=== PATIENT | female | born 1960 | race Caucasian/White ===

== ENCOUNTER → 2017-02-18 | Outpatient (CLI) | payer OTHER ==
[~2017-02-18] MED LIST: MELA1TAB8 PO
== END | disposition home or self-care (01) ==
LOC: STAR 08:15
PROVIDERS: ATTEND Surgery
DX: Z02.9 Encounter for administrative examinations, unspecified (principal)

== ENCOUNTER 2017-02-23 07:10 | Day surgery (SDC) | payer OTHER ==
[~2017-02-23] VITALS: Ht 170.2 cm; Wt 71.4 kg
[2017-02-23] MEDS ORDERED: FENTANYL PF 250 MCG/5ML ONE (09:12)
[2017-02-23] MEDS ORDERED: BUPIVACAINE/PF-EPI 0.5% 1:200K ONE (09:27)
[2017-02-23] MEDS ORDERED: OXYcodone 5 MG/5 ML ORAL.SOL UDC ONE (11:15)
[2017-02-23] MEDS ORDERED: ACETAMINOPHEN 650 MG/20.3 ML UDC ONE (11:15)
[2017-02-23] MEDS: FENTANYL PF 100 MCG/2ML IV PRN ×2 (11:30→11:45)
[2017-02-23] MEDS ORDERED: FENTANYL PF 100 MCG/2ML ONE (11:30)
[2017-02-23] MEDS ORDERED: ONDANSETRON 2MG/ML, 2ML ONE (12:16)
[2017-02-23] MEDS ORDERED: PROMETHAZINE 25 MG SUPP PR ONE ×2 (16:34→17:01)
[2017-02-25 08:11] LABS: IOPTH BASELINE 265 pg/mL; SAMPLE 5 %DROP IOPTH 68 %; SAMPLE 6 %DROP IOPTH 75 %; SAMPLE 7 %DROP IOPTH 74 %
[2017-02-25] MEDS ORDERED: ACETAMINOPHEN 325 MG TABLET PO PRN (10:00)
[2017-02-25] MEDS ORDERED: OXYcodone 5 MG/5 ML ORAL.SOL UDC PO PRN (10:00)
[2017-02-25] MEDS ORDERED: LACTATED RINGERS 1,000 ML IV SCH (14:15)
== END 2017-02-23 17:55 | disposition home or self-care (01) ==
LOC: OR 07:10
PROVIDERS: ATTEND Surgery
DX: E21.0 Primary hyperparathyroidism (principal); Z87.891 Personal history of nicotine dependence; Z72.89 Other problems related to lifestyle; M85.80 Other specified disorders of bone density and structure, unspecified site; E55.9 Vitamin D deficiency, unspecified; Z82.3 Family history of stroke; Z82.49 Family history of ischemic heart disease and other diseases of the circulatory system
CPT/HCPCS: 36415; 60500; 83970; 88305; 88331; 95865; 95940; C1760; J3010

== ENCOUNTER 2017-03-07 16:06 | Emergency (ER) | payer OTHER ==
[~2017-03-07] VITALS: Ht 170.2 cm; Wt 71.2 kg
[2017-03-07] MEDS ORDERED: OXYcodone/APAP 5/325MG TABLET ONE (16:47)
[2017-03-07] MEDS ORDERED: DIAZEPAM 5 MG TABLET ONE (16:47)
[2017-03-07] MEDS ORDERED: KETOROLAC 30 MG/1 ML ONE (16:47)
[2017-03-07] MEDS ORDERED: DIAZEPAM 5 MG TABLET PO ONE (17:00)
[2017-03-07] MEDS ORDERED: OXYcodone/APAP 5/325MG TABLET PO ONE (17:00)
[2017-03-07] MEDS ORDERED: KETOROLAC 30 MG/1 ML IM ONE (17:00)
[2017-03-07 17:13] VITALS: BP 106/73
== END 2017-03-07 17:15 | disposition home or self-care (01) ==
LOC: ED 17:11
DX: S73.102A Unspecified sprain of left hip, initial encounter (principal); M62.838 Other muscle spasm; X50.9XXA Other and unspecified overexertion or strenuous movements or postures, initial encounter; Y93.89 Activity, other specified; Y92.89 Other specified places as the place of occurrence of the external cause; Y99.8 Other external cause status
CPT/HCPCS: 96372; 99283; J1885

== ENCOUNTER 2018-06-07 06:44 | Day surgery (SDC) | payer OTHER ==
[~2018-06-07] VITALS: Ht 170.2 cm; Wt 68.5 kg
[~2018-06-07 06:44] MED LIST changes: +ESTR0.5T PO; +PROG100C16 PO
[2018-06-07 07:17] VITALS: BP 114/78
[2018-06-07] MEDS ORDERED: LACTATED RINGERS 1,000 ML IV SCH (07:20)
[2018-06-07] MEDS ORDERED: LIDOCAINE-MPF 1%, 2ML ONE (07:27)
[2018-06-07] MEDS ORDERED: LIDOCAINE-MPF 1%, 2ML INFIL ONE (07:30)
[2018-06-07] MEDS ORDERED: SCOPOLAMINE PATCH, 1.5MG PATCH.TD72 TD ONE (08:00)
[2018-06-07] MEDS ORDERED: OxyconTIN ER 10 MG TAB.ER PO ONE (08:00)
[2018-06-07] MEDS ORDERED: ONDANSETRON ODT 8 MG PO ONE (08:00)
[2018-06-07] MEDS ORDERED: GABAPENTIN 300 MG CAPSULE PO ONE (08:00)
[2018-06-07] MEDS ORDERED: ACETAMINOPHEN 500 MG TABLET PO ONE (08:00)
[2018-06-07] MEDS ORDERED: BUPIVACAINE/PF-EPI 0.25% 1:200K ONE (09:23)
[2018-06-07] MEDS ORDERED: MIDAZOLAM 1 MG/ML, 2ML ONE (12:00)
[2018-06-07] MEDS ORDERED: PROPOFOL 50 ML ONE (12:00)
[2018-06-07] MEDS ORDERED: FENTANYL PF 250 MCG/5ML ONE (12:00)
[2018-06-07] MEDS ORDERED: DEXAMETHASONE 4 MG/ML, 1ML ONE (12:30)
[2018-06-07] MEDS ORDERED: ONDANSETRON 2MG/ML, 2ML ONE (12:30)
[2018-06-07] MEDS ORDERED: SUCCINYLCHOLINE 20 MG/ML, 10ML ONE (12:30)
[2018-06-07] MEDS ORDERED: ROCURONIUM 10MG/ML,5ML ONE (12:30)
[2018-06-07] MEDS ORDERED: CEFAZOLIN 1,000 MG ONE (12:32)
[2018-06-07] MEDS ORDERED: MORPHINE SULFATE 4 MG/ML, 1ML IVPush PRN (13:00)
[2018-06-07] MEDS ORDERED: ONDANSETRON ODT 8 MG PO PRN (13:00)
[2018-06-07] MEDS ORDERED: FENTANYL PF 100 MCG/2ML IV PRN (13:00)
[2018-06-07] MEDS ORDERED: EPHEDRINE 50 MG/ML, 1ML IM PRN (13:00)
[2018-06-07] MEDS ORDERED: DIPHENHYDRAMINE 50 MG/ML, 1ML IVPush PRN (13:00)
[2018-06-07] MEDS ORDERED: LABETALOL 5MG/ML, 20ML IV PRN (13:00)
[2018-06-07] MEDS ORDERED: PROMETHAZINE 25 MG/ML, 1ML IV PRN (13:00)
[2018-06-07] MEDS ORDERED: PROMETHAZINE 12.5 MG SUPP PR PRN (13:00)
[2018-06-07] MEDS ORDERED: MIDAZOLAM 1 MG/ML, 2ML IV PRN (13:00)
[2018-06-07] MEDS ORDERED: MEPERIDINE/PF 25MG/0.5ML IVPush PRN (13:00)
[2018-06-07] MEDS ORDERED: EPHEDRINE 50 MG/ML, 1ML IVPush PRN (13:00)
[2018-06-07] MEDS ORDERED: PROMETHAZINE 25 MG SUPP PR PRN (13:00)
[2018-06-07] MEDS ORDERED: OXYcodone 5 MG/5 ML ORAL.SOL UDC PO PRN (13:00)
[2018-06-07] MEDS ORDERED: KETOROLAC 30 MG/1 ML ONE (14:05)
[2018-06-07] MEDS ORDERED: MEPERIDINE/PF 50 MG/ML ONE (14:12)
[2018-06-07] MEDS ORDERED: KETOROLAC 30 MG/1 ML IV ONE (14:30)
[2018-06-07] MEDS ORDERED: OXYcodone/APAP 7.5/325MG TABLET ONE (15:45)
[2018-06-07] MEDS ORDERED: OXYcodone/APAP 7.5/325MG TABLET PO PRN (16:00)
== END 2018-06-07 17:55 | disposition home or self-care (01) ==
LOC: OUT 06:44
PROVIDERS: ATTEND Specialist
DX: D25.9 Leiomyoma of uterus, unspecified (principal); N95.0 Postmenopausal bleeding; N80.1 Endometriosis of ovary; Z98.890 Other specified postprocedural states; Z72.89 Other problems related to lifestyle; Z87.891 Personal history of nicotine dependence
CPT/HCPCS: 36415; 58571; 86850; 86900; 86923; 88307; 88329; J0330; J0690; J1100; J1885; J2175; J2250; J2405; J2704; J3010; J3490; J7120; Q0162; S2900

== ENCOUNTER 2019-12-02 08:36 | Outpatient (CLI) | payer OTHER | END 2019-12-02 23:59 | disposition home or self-care (01) | LOC: CFH 08:36 | PROVIDERS: ATTEND Nurse Practitioner | DX: R05 Cough (principal) | CPT/HCPCS: 71250 ==